=== PATIENT | male | born 1965 | race African-American/Black ===

== ENCOUNTER 2017-05-26 08:56 | Outpatient (CLI) | payer MEDICARE ==
--- NOTE | 2017-05-26 10:37 | MRI ---
NONCONTRAST ENHANCED IMAGES CERVICAL SPINE: History: Left sided upper extremity radiculopathy, M79.2. Technique: Multiplanar, multisequence noncontrast enhanced MRI images cervical spine obtained. FINDINGS: The cervical cord is unremarkable. C1-2, C2-3: Unremarkable. C3-4: Disc space height loss is seen. There is disc osteophyte complex centrally compressing the thec al sac resulting in mild central stenosis. Moderate to severe bilateral C3-4 neural foraminal narrowi ng is seen due to uncal vertebral osteophyte hypertrophy. C4-5: Disc desiccation is seen. There is a broad based disc osteophyte complex centrally compressing the thecal sac resulting in mild central stenosis. There is moderate to severe right and mild to mode rate left C4-5 neural foraminal narrowing due to uncal vertebral osteophyte hypertrophy. C5-6: There is a broad based disc osteophyte complex centrally compressing the thecal sac. This resul ts in mild to moderate central stenosis. Moderate right and mild left sided C5-6 neural foraminal ambrocio rowing is seen due to uncal vertebral osteophyte hypertrophy. C6-7: There is broad based disc osteophyte complex centrally compressing the thecal sac resulting in mild central and left C6-7 lateral recess stenosis. Moderate bilateral neural foraminal narrowing is seen due to uncal vertebral osteophyte hypertrophy. C7-T1: Unremarkable. IMPRESSION: Multilevel central and neural foraminal narrowing in the mid and lower cervical spine. No obvious frank dence of cord compression seen. POS: [facility]
== END 2017-05-26 08:57 | disposition home or self-care (01) ==
LOC: SCSMRI 08:56
PROVIDERS: ATTEND Psychiatry & Neurology Neurology
DX: M54.10 Radiculopathy, site unspecified (principal); M48.02 Spinal stenosis, cervical region; M99.41 Connective tissue stenosis of neural canal of cervical region
CPT/HCPCS: 72141

== ENCOUNTER 2017-11-23 07:31 | Emergency (ER) | payer MEDICARE ==
[2017-11-23] MEDS ORDERED: Cyclobenzaprine 10 MG TAB ONE (08:08)
[2017-11-23] MEDS ORDERED: Ketorolac Tromethamine 30 MG/ML VIAL ONE (08:08)
[2017-11-23 08:28] LABS: ALT (SGPT) 29 U/L (8-55); AST (SGOT) 43 U/L (5-34); Albumin 4.7 g/dL (3.5-5.0); Alkaline Phosphatase 50 U/L (40-150); Anion Gap 14 mmol/L (10-20); BUN (Urea Nitrogen) 25 mg/dL (8.4-25.7); Bilirubin, Total 0.6 mg/dL (0.2-1.2); CK (CPK) 1669 U/L (30-200); Calc. Creatinine Clearance 0 mL/min (70-130); Carbon Dioxide 20 mmol/L (22-29); Chloride 105 mmol/L (98-107); Estimated GFR-MDRD 44; Globulin 3.6 g/dL (2.4-3.5); Glucose 130 mg/dL (70-105); Potassium 4.4 mmol/L (3.5-5.1); Protein, Total 8.3 g/dL (6.0-8.3); Sodium 135 mmol/L (136-145)
--- NOTE | 2017-11-23 08:30 | RAD ---
PORTABLE CHEST: HISTORY: Chest pain. COMPARISON: 11/21/17. FINDINGS: Lung krueger are clear. Heart and mediastinum appear unremarkable. Vascular markings are normal. IMPRESSION: Unremarkable portable chest. POS: [facility]
[2017-11-23 08:32] LABS: CKMB 5.5 ng/mL (0-6.6); Troponin I Less than 0.010 ng/mL (< 0.028)
[2017-11-23 08:39] LABS: Band 2 % (5-11); Hemoglobin 14.6 g/dL (14.0-18.0); Lymphocytes 22 % (21-51); MDiff Complete? YES; Mean Corpuscular HGB CONC 33.9 g/dL (32.0-36.0); Mean Corpuscular Hemoglobin 31.6 pg (27.0-31.0); Mean Corpuscular Volume 93.4 fl (80.0-94.0); Mean Platelet Volume 6.9 fL (7.4-10.4); Monocytes 4 % (0-10); Neutrophil 68 % (42-75); PLT Morphology Comment Appears Adequate; Platelet Count 285 thou/uL (130-400); RBC Morphology Normal; Reactive Lymphocytes 4 % (0-10); Red Blood Cell (RBC) Count 4.61 mill/uL (4.70-6.10); White Blood Cell (WBC) Count 11.4 thou/uL (4.8-10.8)
--- NOTE | 2017-12-11 18:23 | EKG ---
Test Reason : CHEST PAIN Blood Pressure : / mmHG Vent. Rate : 062 BPM Atrial Rate : 062 BPM P-R Int : 148 ms QRS Dur : 096 ms QT Int : 398 ms P-R-T Axes : 047 -16 039 degrees QTc Int : 403 ms Normal sinus rhythm Normal ECG Confirmed by KAREN PAGAN D.O. ([id number]), order editor BILL POTTS ([id number]) on 12/11/2017 6:22:30 PM Referred By: ROCHELLE PAGAN Confirmed By:KAREN PAGAN D.O.
== END 2017-11-23 09:54 | disposition home or self-care (01) ==
LOC: ERS 07:31
DX: S29.012A Strain of muscle and tendon of back wall of thorax, initial encounter (principal); E78.5 Hyperlipidemia, unspecified; I10 Essential (primary) hypertension; N28.9 Disorder of kidney and ureter, unspecified; F17.210 Nicotine dependence, cigarettes, uncomplicated
CPT/HCPCS: 71045; 80053; 82553; 84484; 85025; 93005; 96374; J1885

== ENCOUNTER 2018-12-08 13:16 | Emergency (ER) | payer MEDICARE ==
[2018-12-08] MEDS ORDERED: Diazepam 5 MG TAB ONE (14:11)
[2018-12-08] MEDS ORDERED: Ketorolac Tromethamine 60 MG/2 ML VIAL ONE (14:12)
[2018-12-08] MEDS ORDERED: Acetaminophen/Codeine 30-300mg Tablet ONE (15:04)
== END 2018-12-08 16:15 | disposition home or self-care (01) ==
LOC: ERS 13:16
DX: S16.1XXA Strain of muscle, fascia and tendon at neck level, initial encounter (principal); E78.5 Hyperlipidemia, unspecified; I10 Essential (primary) hypertension; F17.210 Nicotine dependence, cigarettes, uncomplicated; W17.89XA Other fall from one level to another, initial encounter
CPT/HCPCS: 99283; J1885

== ENCOUNTER 2019-02-22 05:32 | Day surgery (SDC) | payer MEDICARE ==
[2019-02-21 11:03] VITALS: BMI 23.8
--- NOTE | 2019-02-21 20:39 | HP ---
HISTORY OF PRESENT ILLNESS: Mr. Beltrán is known to me for evaluation in July of 2017 for cervical radiculopathy and was referred for physical therapy and epidural steroid injections. He was on the therapy, which did not help, but over the interval of time until now, his pains and numbness have worsen, and he has a new MRI from [place] that reveals severe foraminal stenosis from C3-C7. All these levels could not be implicating the pain that he is experiencing, which include intrascapular pain, neck pain, and bilateral C6-C7 pains with numbness. Any lifting, even light weight, worsens his symptoms and the numbness become severe at night when lying flat. PAST MEDICAL HISTORY: Significant for hypercholesterolemia, chronic pain syndrome, hypertension, gout, arthritis. CURRENT MEDICATIONS: Unlisted. PAST SURGICAL HISTORY: None. PHYSICAL EXAMINATION: The patient is alert and oriented x3. Gait is normal. No ataxia. Upper extremity motor exam is normal throughout except for good strength, which is mildly reduced. He has severe pain with most movements of the neck and upper extremities, particularly against resistance. ASSESSMENT: Cervical radiculopathy. PLAN: Dr. Mcclendon met with the patient, reviewed imaging, advocated for C6-C7 ACDF. He explained to the patient the risks, benefits, and alternatives to the procedure. The patient expressed understanding and elected to move forward with surgery as discussed. I do believe the patient is mentally competent and capable of making medical decisions for himself. We will move forward with surgery as planned. Job ID: [id number]
[2019-02-22 06:23] LABS: #Basophils 0.1 thou/uL (0.0-0.2); #Eosinphils 0.2 thou/uL (0.0-0.7); #Lymphocytes 4.2 thou/uL (1.20-3.40); #Monocytes 0.9 thou/uL (0.11-0.59); #Neutrophils 5.3 thou/uL (1.40-6.50); %Basophils 0.9 % (0.0-1.0); %Eosinophils 1.9 % (0.0-10.0); %Lymphocytes 39.7 % (21.0-51.0); %Monocytes 8.1 % (0.0-10.0); %Neutrophils 49.4 % (42.0-75.0); Hemoglobin 14.5 g/dL (14.0-18.0); Mean Corpuscular HGB CONC 32.9 g/dL (32.0-36.0); Mean Corpuscular Hemoglobin 31.4 pg (27.0-31.0); Mean Corpuscular Volume 95.7 fL (78.0-98.0); Mean Platelet Volume 7.2 fL (7.4-10.4); Platelet Count 289 thou/uL (130-400); White Blood Cell (WBC) Count 10.7 thou/uL (4.8-10.8)
[2019-02-22] MEDS ORDERED: Thrombin 5000 UNITS/5 ML VIAL ONE (06:37)
[2019-02-22] MEDS ORDERED: Fentanyl 250 MCG/5 ML VIAL ONE (06:38)
[2019-02-22 06:44] LABS: Anion Gap 13 mmol/L (10-20); BUN (Urea Nitrogen) 21 mg/dL (8.4-25.7); Calc. Creatinine Clearance 38 mL/min (70-130); Calcium 10.1 mg/dL (7.8-10.44); Carbon Dioxide 21 mmol/L (22-29); Chloride 106 mmol/L (98-107); Estimated GFR-MDRD 43; Glucose 96 mg/dL (70-105); Potassium 4.3 mmol/L (3.5-5.1); Sodium 136 mmol/L (136-145)
[2019-02-22] MEDS ORDERED: Fentanyl 100 MCG/2 ML VIAL ONE ×3 (08:29→09:15)
[2019-02-22] MEDS ORDERED: Morphine 4 MG/ML VIAL ONE (09:34)
[2019-02-22] MEDS ORDERED: Morphine 2 MG/ML SYRINGE ONE ×2 (09:39→09:52)
[2019-02-22] MEDS ORDERED: Tamsulosin HCl 0.4 MG CAP ONE (09:41)
[2019-02-22] MEDS ORDERED: Lidocaine 1% PF 5 ML VIAL ONE (11:34)
[2019-02-22] MEDS ORDERED: Glycopyrrolate 0.2 MG/ML 5 ML SYRINGE ONE (11:34)
[2019-02-22] MEDS ORDERED: PROPOFOL 200 MG/20 ML VIAL ONE (11:34)
[2019-02-22] MEDS ORDERED: Dexamethasone 20 MG/5 ML VIAL ONE (11:34)
[2019-02-22] MEDS ORDERED: Rocuronium Bromide 10 MG/ML (10ML VIAL) ONE (11:34)
[2019-02-22] MEDS ORDERED: Ondansetron PF 4 MG/2 ML Vial ONE (11:34)
[2019-02-22] MEDS ORDERED: HYDROcodone/Acetaminophen 5/325 mg Tablet ONE (11:47)
--- NOTE | 2019-02-22 14:52 | OP ---
DATE OF PROCEDURE: 02/22/2019 [employer] SUPERVISOR: Neeraj Steele PA-C INDICATION: Pain. DIAGNOSIS: Cervical radiculopathy. PROCEDURE PERFORMED: Anterior cervical diskectomy and fusion, C6-C7. ANESTHESIA: General. DESCRIPTION OF PROCEDURE: The patient was brought into the operating room and placed under general anesthesia. He was flipped from the supine to prone position on the operating room table. A linear incision was planned in a transverse fashion on the right side over the C6-C7 segment. After prepping and draping and after an appropriate operative pause, the incision was created. The underlying platysma muscle was identified and incised. A blunt tissue plane anterior to the sternocleidomastoid muscle was used to gain access to the prevertebral space. Self-retaining retractors were placed in the wound for optimal exposure. After confirming the appropriate level on C-arm fluoroscopy, an annulotomy was performed in the C6-C7 disk space. All disk material as well as anterior and posterior osteophytes were removed. After decompressing the segment, a 6-mm lordotic PEEK cage packed with allograft and autograft material was placed within the interbody space. An anterior cervical plate was then fashioned to the front of spine and secured with a total of 4 fixed screws. Midline and lateral structures were then inspected and found to be free from significant trauma. The wound was irrigated. Hemostasis was maintained throughout. The wound was then closed in anatomic layers, and a pressure dressing was applied. There were no known procedural complications. Job ID: [id number]
== END 2019-02-22 12:25 | disposition home or self-care (01) ==
LOC: SDC 05:32
PROVIDERS: ATTEND Neurological Surgery
PROC: 0RG10A0 Fusion of Cervical Vertebral Joint with Interbody Fusion Device, Anterior Approach, Anterior Column, Open Approach (ICD-10-PCS; principal; 2019-02-22)
PROC: 0RT30ZZ Resection of Cervical Vertebral Disc, Open Approach (ICD-10-PCS; 2019-02-22)
DX: M54.12 Radiculopathy, cervical region (principal); M48.02 Spinal stenosis, cervical region; E78.00 Pure hypercholesterolemia, unspecified; G89.4 Chronic pain syndrome; M10.9 Gout, unspecified; M19.90 Unspecified osteoarthritis, unspecified site; I12.9 Hypertensive chronic kidney disease with stage 1 through stage 4 chronic kidney disease, or unspecified chronic kidney disease; N18.3 Chronic kidney disease, stage 3 (moderate); Z79.899 Other long term (current) drug therapy; Z88.6 Allergy status to analgesic agent
CPT/HCPCS: 20930; 20936; 22551; 22845; 22853; 76000; 80048; 85025; C1713; C1776; 36415; J0690; J2270; J3010

== ENCOUNTER 2020-03-02 12:43 | Emergency (ER) | payer MEDICARE ==
[2020-03-02] MEDS ORDERED: HYDROcodone/Acetaminophen 5/325 mg Tablet ONE (13:42)
[2020-03-02] MEDS ORDERED: Ketorolac Tromethamine 30 MG/ML VIAL ONE (13:42)
== END 2020-03-02 14:13 | disposition home or self-care (01) ==
LOC: ERS 12:43
DX: M54.5 Low back pain (principal); I10 Essential (primary) hypertension; E78.5 Hyperlipidemia, unspecified; E78.00 Pure hypercholesterolemia, unspecified; F17.210 Nicotine dependence, cigarettes, uncomplicated
CPT/HCPCS: 96372; 99283; J1885